=== PATIENT | female | born 1980 | race Caucasian/White ===

== ENCOUNTER 2022-03-29 13:30 | Emergency (ER) | payer OTHER, SELFPAY ==
[2022-03-29] VITALS (9 sets, daily range): BP systolic 114–126; BP diastolic 66–92; PULSE 68–86; RESP 16–18; TEMP 36.4; O2SAT 97–99; BMI 18.7
--- NOTE | 2022-03-29 14:05 | CRLHL7_ITS ---
For Patients: As a result of the Century Cures Act, medical imaging exams and procedure reports are released immediately into your electronic medical record. You may view this report before your referring provider. If you have questions, please contact your health care provider. INDICATION: Pain, nausea and recent surgery. Patient has a history nutcracker syndrome and has had recent surgery regarding her duodenum and left renal vein for treatment. COMPARISON: 11/11/2021 TECHNIQUE: CT examination of the abdomen and pelvis was performed following the uneventful intravenous administration of 100 cc of Omnipaque 350. Thin section axial images were obtained from the lung bases through the pubic symphysis. Oral contrast was not administered. Please note that all CT scans at this facility use dose modulation, iterative reconstruction, and/or weight-based dosing when appropriate to reduce radiation dose to as low as reasonably achievable. FINDINGS: LUNG BASES: The lung bases as visualized appear normal.The heart size is normal at the lung bases. LIVER/BILIARY SYSTEM:The liver is normal in size and configuration. There is no focal mass and there is no intra- or extra hepatic biliary ductal dilatation.The gallbladder is surgically absent. The caliber of the biliary system is within normal limits for patient age and prior cholecystectomy. ADRENALS: Normal KIDNEYS, URETERS and BLADDER:The kidneys appear normal. I cannot directly follow the course the patient`s left renal vein. However, the nephrograms are perfectly symmetrical. In the setting of renal vein thrombosis, the nephrograms are generally asymmetric. The timing of the bolus was not designed for evaluating the renal venous system. No hydronephrosis or hydroureter. The bladder appears normal. SPLEEN:Normal appearance. PANCREAS: Appears normal. RETROPERITONEUM and MESENTERY: There are 2 adjacent fluid collections in the retroperitoneum. They are to the left of the midline at the level of the left renal vein and proximal SMA behind the pancreas. This measures 2.5 by 6.4 x 2.2 centimeters in its anterior-posterior, mediolateral and craniocaudal respective dimensions from axial image 46 and coronal image 34. This is the aggregate measure of the 2 structures together. These are relatively simple collections with thin alonzo. These probably represent postoperative hematomas or seromas. These do not appear represent infected collections by imaging criteria. GASTROINTESTINAL SYSTEM: By report, the duodenum is been repositioned. The course is not well seen without oral contrast but there is no evidence of gastric outlet obstruction. The GI system is otherwise unremarkable PELVIS: No mass, adenopathy or free fluid. OSSEOUS STRUCTURES and ABDOMINAL WALL: There is an age-appropriate appearance of the osseous structures.Postoperative changes in the anterior abdominal wall OTHER: No free fluid or free air. I discussed this case with Dr. Miles at 2:55 p.m. on March 29, 2022 IMPRESSION: 1. There are 2 adjacent fluid collections in the upper left retroperitoneum measuring 2.5 x 6.4 x 2.2 centimeters in aggregate dimension. These are probably in the region of the operative bed for reimplantation of the left renal vein. They most likely represent hematomas or seromas. They do not have imaging features of an infected collection. 2. I do not directly see the course of the left renal vein. However, symmetric nephrograms suggests there is no evidence of left renal vein thrombosis. The timing of the study was not designed for the venous outflow of the kidneys. 3. No upper gastrointestinal obstructive findings. Please note that all CT scans at this facility use dose modulation, iterative reconstruction, and/or weight-based dosing when appropriate to reduce radiation dose to as low as reasonably achievable. Dictated by Gareth Motley MD @ 03/29/2022 3:01:09 PM (Electronically Signed)
--- NOTE | 2022-03-29 14:07 | ED.ABDPAIN ---
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 She comes in because of a couple days of nausea and abdominal pain. About 3 weeks ago she had an abdominal surgery where rerouting of her renal artery on the left side and her duodenum were attended to. She has been doing rather well since then but has developed nausea but no vomiting and increased abdominal pain. She does not report any fevers. Related Data Home Medications Medication Instructions Recorded Confirmed acyclovir 400 mg tablet mg PO PRN 02/27/22 02/27/22 levonorgestrel 20 mcg/24 hours (7 1 intrauterine ONCE 02/27/22 02/27/22 yrs) 52 mg intrauterine device ondansetron HCl 4 mg tablet mg PO Q6-8H PRN 02/27/22 02/27/22 ketorolac 10 mg tablet mg 03/29/22 methocarbamol 500 mg tablet mg 03/29/22 oxycodone 5 mg tablet mg 03/29/22 sennosides 8.6 mg-docusate sodium PO 03/29/22 50 mg tablet (Stimulant Laxative Plus) Previous Rx's Medication Instructions Recorded hydrocodone 5 mg-acetaminophen 325 1 tab PO Q4-6H PRN pain #24 tabs 03/29/22 mg tablet ondansetron HCl 4 mg tablet 4 mg PO Q6H #20 tabs 03/29/22 Allergies Allergy/AdvReac Type Severity Reaction Status Date / Time No Known Allergies Allergy Unverified 03/29/22 14:33 Review of Systems Status of ROS Reports: 10 or more systems reviewed and unremarkable except as noted in History and below Narrative Constitutional: No fevers, no weight gain or loss. Eyes: No discharge. No vision changes. HENT: No congestion, no sore throat, no ear pain. Cardiovascular: No chest pain, no palpitations. Respiratory: No shortness of breath, no wheezes, no cough. Gastrointestinal: Diffuse abdominal pain with nausea. No vomiting or diarrhea. Genitourinary: No dysuria, no hematuria. Musculoskeletal: Normal range of motion. Skin: No rashes, no pruritis. Neurological: No dizziness, weakness, sensory change, speech change. Endo/Heme/Allergies: No bruising or bleeding. No polydipsia. Pysch: no suicidality, no anxiety, no insomnia. All other systems reviewed and are negative. [facility] Medical History (Updated 03/29/22 @ 15:55 by Glen Miles MD) Anxiety with depression Cyst of ovary Dacryocystitis Fracture of sternum (10/13/16) Gastroesophageal reflux disease History of renal calculi (2011) Paroxysmal tachycardia SMAS (superior mesenteric artery syndrome) Unilateral sensorineural hearing loss (2016) Surgical History (Updated 02/21/22 @ 09:16 by Geovany Briseno) History of colonoscopy (12/05/12) History of esophagogastroduodenoscopy (EGD) (10/17/12) History of laparoscopic cholecystectomy (2012) History of nephrostomy (2011) History of umbilical hernia repair (2016) History of ureter stent (2011) Family History (Updated 02/21/22 @ 09:18 by Geovany Briseno) Aunt Breast cancer, Onset Age: 58 Ovarian cancer, Onset Age: 55 Type 2 diabetes mellitus Maternal Grandmother Stroke, Onset Age: 70 Type 2 diabetes mellitus Maternal Grandfather Myocardial infarction, Onset Age: 40 Type 2 diabetes mellitus Uncle Type 2 diabetes mellitus Other Kidney stone Social History (Updated 02/21/22 @ 09:19 by Geovany Briseno) Narrative: , RN in OR, 2 kids Exercises three times per week. walk, biking Social drinker, 4/week Tobacco abuse, 5 cig/day Smoking Status: Never smoker Do you use any of these nicotine containing products: None Second hand tobacco smoke exposure: No How often do you have a drink containing alcohol: never How often do you have six or more drinks on one occasion: Never AUDIT-C Alcohol total score: 0 Non-prescribed substance use: denies use service: No Exam Narrative: Exam Narrative: Constitutional: Well-developed, well-nourished, no acute distress. HEENT: Normocephalic, atraumatic. Neck: Normal range of motion. Nontender. Supple. Heart: Regular. No murmurs. Normal rate. Intact distal pulses. Lungs: Clear to auscultation. No chest discomfort. No wheezes, rhonchi, or rales. Abdomen: Normal bowel sounds. Diffuse tenderness. No rebound tenderness. Genitalia: Deferred. Back: No midline tenderness. Normal range of motion. Extremities: Normal range of motion. No injury. Skin: Intact. No rash. Warm. No erythema or pallor. Neurologic: No altered sensation. No weakness. Alert and oriented. Psychiatric: No suicidality. No anxiety or depression. No insomnia. Nursing notes and vitals signs are reviewed. Const: Vital Signs, click to edit/add: Vital Signs - 24 hr 03/29/22 13:45 Temperature 97.6 F Pulse Rate [Right Pulse Oximeter] 85 Respiratory Rate 16 Blood Pressure [Ri ght Upper Arm] 120/77 Pulse Oximetry 99 Oxygen Delivery Me thod Room Air Course Vital Signs Vital signs: Initial Vital Signs Temperature 97.6 F 03/29/22 13:45 Temperature Source Temporal Artery Scan 03/29/22 13:45 Pulse Rate 85 03/29/22 13:45 Pulse Rhythm 03/29/22 13:45 Respiratory Rate 16 03/29/22 13:45 Blood Pressure 120/77 03/29/22 13:45 Blood Pressure Mean 91 03/29/22 13:45 Blood Pressure Position Sitting 03/29/22 13:45 Pulse Oximetry 99 03/29/22 13:45 Oxygen Delivery Method 03/29/22 13:45 Vital Signs Temperature 97.6 F 03/29/22 13:45 Pulse Rate 85 03/29/22 13:45 Respiratory Rate 16 03/29/22 13:45 Blood Pressure 120/77 03/29/22 13:45 Pulse Oximetry 99 03/29/22 13:45 Oxygen Delivery Method 03/29/22 13:45 Temperature 97.6 F 03/29/22 13:45 Pulse Rate 85 03/29/22 13:45 Respiratory Rate 16 03/29/22 13:45 Blood Pressure 120/77 03/29/22 13:45 Pulse Oximetry 99 03/29/22 13:45 Oxygen Delivery Method 03/29/22 13:45 MDM - Abdominal Pain MDM Narrative Medical decision making narrative: . This patient comes in with worsening nausea and pain in her abdomen. She had a surgical procedure to manage in SMA syndrome and nutcracker situation involving her duodenum and left renal vein. She has been doing well but has felt worse over the last couple days. An IV was established where she received doses of Zofran and Dilaudid. This brought some relief to her symptoms. Lab results and urinalysis returned with reassuring findings. CT imaging of the abdomen and pelvis do show signs of small fluid collection around the surgical site that is considered to be either a seroma or hematoma. I did speak with the surgeon on-call, Dr. Shannon, who looked at the images and read the radiology report and gave reassurance is that these findings are not worrisome. The patient will be able to follow-up with her surgeon with these results and will return if worsening symptoms occur. She did received prescription for [place] and Zofran. Lab Data Labs: Lab Results 03/29/22 03/29/22 03/29/22 Range/Units 14:17 14:17 15:00 WBC 6.85 (4.50-11.00) K/uL RBC 4.05 (4.00-5.20) m/uL Hgb 12.9 (12.0-16.0) gm/dL Hct 38.3 (33.0-51.0) % MCV 95 (80-100) fL MCH 32 (26-34) pg MCHC 34 (32-36) gm/dL RDW Coeff of Sanjay 12.6 (11.5-15.5) % Plt Count 191 (140-440) K/uL Neut % (Auto) 63.6 (42.0-72.0) % Lymph % (Auto) 10.7 L (20-44) % [place] % (Auto) 6.4 (0.0-11.0) % Eos % (Auto) 18.7 H (0.0-7.0) % Baso % (Auto) 0.6 (0.0-3.0) % Neut # (Auto) 4.36 (1.7-7.0) K/uL Lymph # (Auto) 0.70 L (0.90-2.90) K/uL [place] # (Auto) 0.40 (0.00-0.90) K/UL Eos # (Auto) 1.30 H (0.00-0.50) K/uL Baso # (Auto) 0.04 (0.00-0.30) K/uL Abs Immat Gran (auto) 0.00 (0.00-0.30) K/uL Sodium 136 (135-149) mmol/L Potassium 3.9 (3.6-5.1) mmol/L Chloride 104 (96-114) mmol/L Carbon Dioxide 24 (20-32) mmol/L BUN 5 (5-24) mg/dL Creatinine 0.6 (0.5-1.5) mg/dL Estimated Creat Clear 117.18 Estimated GFR 117 ml/min Glucose 95 (60-115) mg/dL Calcium 9.0 (8.4-10.6) mg/dL Urine Color Yellow (Yellow) Urine Appearance Clear (Clear) Urine pH 7.0 (5.0-8.5) Ur Specific [place] 1.010 (1.000-1.030) Urine Protein Negative (Negative) Urine Glucose (UA) Negative (Negative) Urine Ketones Trace A (Negative) Urine Blood Negative (Negative) Urine Nitrite Negative (Negative) Urine Bilirubin 1+ A (Negative) Urine Urobilinogen 0.2 (0.2-1.0) Ur Leukocyte Esterase Negative (Negative) Urine RBC 0-2 (0-2) Urine WBC 0-2 (0-5) Ur Squamous Epith Cells None (None-Few) Urine Bacteria None (None) Imaging Data CT scan - abdomen: Radiologist's impression: 1. There are 2 adjacent fluid collections in the upper left retroperitoneum measuring 2.5 x 6.4 x 2.2 centimeters in aggregate dimension. These are probably in the region of the operative bed for reimplantation of the left renal vein. They most likely represent hematomas or seromas. They do not have imaging features of an infected collection. 2. I do not directly see the course of the left renal vein. However, symmetric nephrograms suggests there is no evidence of left renal vein thrombosis. The timing of the study was not designed for the venous outflow of the kidneys. 3. No upper gastrointestinal obstructive findings. Discharge Plan Discharge Clinical Impression: Nutcracker phenomenon of renal vein, SMAS (superior mesenteric artery syndrome) Condition: Stable Additional Instructions: Follow-up with primary surgeon with lab and imaging results. Take medication as needed and directed. Follow up with MD otherwise as needed or return if worsening. Prescriptions: New hydrocodone-acetaminophen 5-325 mg tablet 1 tab PO Q4-6H PRN (Reason: pain) Qty: 24 0RF ondansetron HCl 4 mg tablet 4 mg PO Q6H Qty: 20 0RF No Action levonorgestrel 20 mcg/24 hours (7 yrs) 52 mg intrauterine device 1 intrauterine ONCE ondansetron HCl 4 mg tablet PO Q6-8H PRN acyclovir 400 mg tablet PO PRN Rx Instructions: 1 tab po 5 times daily x 5 days , use PRN for cold sores methocarbamol 500 mg tablet Label Comments: TAKE 1 TABLET BY MOUTH THREE TIMES DAILY NEEDED sennosides-docusate sodium [Stimulant Laxative Plus] 8.6-50 mg tablet PO Label Comments: TAKE 1 TABLET BY MOUTH TWICE DAILY. GO DOWN TO [place] DAILY ONCE YOU BEGIN TO HAVE BOWEL MOVEMENTS oxycodone 5 mg tablet ketorolac 10 mg tablet Follow Up/Referrals: Yadira Crowe MD [Primary Care Provider] - Stand Alone Forms: [employer] Info Instructions
[2022-03-29] MEDS: ONDANSETRON 2 MG/ML inj 4 MG IVP ×3 (14:21→17:07)
[2022-03-29] MEDS: 0.9 % SODIUM CHLORIDE 1000 ml 1,000 ML IV (14:21)
[2022-03-29] MEDS: HYDROmorphone 0.5 mg/0.5 ml inj IVP ×3 (14:22→21:39)
[2022-03-29 14:28] LABS: Basophils Absolute Auto 0.04 K/uL (0.00-0.30); Basophils Percent Auto 0.6 % (0.0-3.0); Eosinophils Percent Auto 18.7 % (0.0-7.0); Hematocrit 38.3 % (33.0-51.0); Hemoglobin* 12.9 gm/dL (12.0-16.0); Lymphocytes Percent Auto 10.7 % (20-44); Mean Corpuscular HGB Conc 34 gm/dL (32-36); Mean Corpuscular Hemoglobin 32 pg (26-34); Mean Corpuscular Volume 95 fL (80-100); Monocytes Percent Auto 6.4 % (0.0-11.0); Neutrophils Absolute Auto 4.36 K/uL (1.7-7.0); Neutrophils Percent Auto 63.6 % (42.0-72.0); Platelet Count* 191 K/uL (140-440); RDW Coefficient of Variation % 12.6 % (11.5-15.5); Red Blood Count 4.05 m/uL (4.00-5.20); White Blood Count* 6.85 K/uL (4.50-11.00)
[2022-03-29 14:43] LABS: Slide Review Reflex No
[2022-03-29 14:52] LABS: Chloride* 104 mmol/L (96-114); Potassium* 3.9 mmol/L (3.6-5.1); Sodium* 136 mmol/L (135-149)
[2022-03-29 14:55] LABS: Blood Urea Nitrogen* 5 mg/dL (5-24); Carbon Dioxide* 24 mmol/L (20-32); Creatinine* 0.6 mg/dL (0.5-1.5); Est. Creatinine Clearance* 117.18; Estimated Glomerular Filt Rate 117 ml/min
[2022-03-29 14:56] LABS: Glucose* 95 mg/dL (60-115)
[2022-03-29 15:11] LABS: Appearance Urine Clear (Clear); Bilirubin Urine 1+ (Negative); Blood Urine Negative (Negative); Color Urine Yellow (Yellow); Glucose Urine Negative (Negative); Ketones Urine Trace (Negative); Leukocyte Esterase Urine Negative (Negative); Nitrite Urine Negative (Negative); Protein Urine Negative (Negative); Urobilinogen Urine 0.2 (0.2-1.0)
[2022-03-29 15:18] LABS: RBC Urine 0-2 (0-2); WBC Urine 0-2 (0-5)
[2022-03-29 16:23] LABS: Albumin* 3.9 g/dL (3.3-5.0)
[2022-03-29 16:26] LABS: Alkaline Phosphatase* 263 U/L (40-150); Aspartate Amino Transferase* 413 U/L (12-35); Bilirubin Direct* 2.7 mg/dL (0.0-0.5); Bilirubin Total* 4.2 mg/dL (0.1-1.5); Total Protein* 6.7 g/dL (6.0-8.3)
--- NOTE | 2022-03-29 16:55 | CRLHL7_ITS ---
For Patients: As a result of the Cures Act, medical imaging exams and procedure reports are released immediately into your electronic medical record. You may view this report before your referring provider. If you have questions, please contact your health care provider. Indication: Elevated liver enzymes elevated bilirubin. Technique: Sonography of the abdomen was limited to structures discussed. Comparison: The CT from the same Findings: The liver is normal in echogenicity. There is no focal mass and there is intra hepatic biliary ductal dilatation. No perihepatic fluid collections. The gallbladder surgically absent. The common duct measures 7 millimeters. This is within normal limits for patient age and prior cholecystectomy. The pancreatic head and body appear normal. The duct appears mildly prominent at the pancreatic head but this was not confirmed on the contemporaneously CT. The right kidney is normal in size and echogenicity without focal mass. The right kidney measures 11.7 x 5.0 x 4.3 centimeters. The aorta in the upper abdomen appear normal Impression: Mildly prominent extrahepatic duct. This is 7 millimeters which is considered within normal limits for patient age and prior cholecystectomy. Hepatic echogenicity is normal without focal mass. Dictated by Gareth Motley MD @ 03/29/2022 6:02:16 PM (Electronically Signed)
[2022-03-29 17:26] LABS: Alanine Aminotransferase* 778 U/L (4-35)
[2022-03-29 18:15] LABS: Lipase* 103 U/L (23-300)
[2022-03-29] MEDS: LORazepam 2 MG/ML inj 0.5 MG IVP (22:39)
== END 2022-03-29 22:54 | disposition home or self-care (01) ==
PROVIDERS: Emergency Provider Emergency Medicine Emergency Medical Services; PCP Family Medicine
DX: I87.1 Compression of vein (principal); K55.1 Chronic vascular disorders of intestine
CPT/HCPCS: 36415; 74177; 76705; 80048; 80076; 81001; 83690; 85025; 96374; 96375; 96376; 99285; J1170; J2060; J2405; J7030; Q9967

== ENCOUNTER 2022-03-29 22:48 | Outpatient (CLI) | payer OTHER, SELFPAY | END 2022-03-29 22:49 | disposition home or self-care (01) | LOC: AMB 04-01 16:22 | PROVIDERS: PCP Family Medicine; Visit Provider Emergency Medicine Emergency Medical Services | DX: R10.9 Unspecified abdominal pain (principal); R11.2 Nausea with vomiting, unspecified | CPT/HCPCS: A0425; A0428 ==

== ENCOUNTER 2022-04-10 08:25 | Outpatient (CLI) | payer OTHER, SELFPAY ==
[2022-04-10 10:14] LABS: Albumin* 4.3 g/dL (3.3-5.0)
[2022-04-10 10:17] LABS: Bilirubin Direct* 0.9 mg/dL (0.0-0.5); Total Protein* 6.7 g/dL (6.0-8.3)
[2022-04-10 10:18] LABS: Alanine Aminotransferase* 229 U/L (4-35); Alkaline Phosphatase* 157 U/L (40-150); Aspartate Amino Transferase* 62 U/L (12-35)
== END 2022-04-10 08:26 | disposition home or self-care (01) ==
LOC: NFLDREF 08:26
PROVIDERS: PCP Family Medicine; Visit Provider Surgery
DX: K55.1 Chronic vascular disorders of intestine (principal)
CPT/HCPCS: 80076

== ENCOUNTER 2024-01-10 07:52 | Outpatient (CLI) | payer OTHER, SELFPAY ==
--- OUTSIDE RECORDS SUMMARY | 2024-01-14 16:22 | XMS_ITS | Encounter Summary ---
Author Organization [facility] Address [address] [place] [address]. [place] [address] Care Team Providers Care Stacker Name Role Phone Rich Vilchis MD Unavailable [phone] Yadira Crowe MD Primary Care Provider + Emilie Elder SANITATION INSPECTOR Unavailable [phone] Rich Vilchis MD Unavailable [phone] Encounter Details Date Type Department Care Team (Late st Contact Info) Description 03/23/2022 MyC Medical Advice [facility] [address] [place] [phone] Emilie Elder, SANITATION INSPECTOR [address] [place], [place] [address] Social History Tobacco Use Types Packs/Day Years Used Date Smoking Tobacco: Former Cigarettes Q uit: 02/07/2022 Smokeless Tobacco: Never Alcohol Use Standard Drinks/Week Comments Yes 0 (1 standard drink = 0.6 oz pur e alcohol) 4 times per week Sex and Gender Information Value Date Recorded Sex Assigned at Not on file Gender Identity Not on file Sexual Orientation Not on file COVID-19 Exposure Response Date Recorded In the last 10 days, have yo u been in contact with someone who was confirmed or suspected to have Coronavirus/COVID-19? No / Unsure 03/20/2022 10:04 AM CDT documented as of this encounter Plan of Treatment Not on file documented as of this encounter Visit Diagnoses Not on filedocumented in this encounter Additional Health Concerns Infection Onset Date Last Indicated Resolved Time Recovered COVID Comment:01/07/22- positive. 02/02/2022 02/02/2022 04/18/2022 11: 41 PM CDT documented as of this encounter Care Teams Stacker Relationship Specialty Start Date End Date Yadira Crowe MD [facility] & [address] [address] PCP - General Family Medicine 03/06/22 Rich Vilchis MD [address] [id number] [id number] Assigned Heart and Vascular Provider 02/03/22 03/30/22 Emilie Elder NP [address] [place], [place] [id number] Assigned Heart and Vascular Provider 03/31/22 05/01/22 Rich Vilchis MD [address] [id number] [id number] Assigned Heart and Vascular Provider 05/02/22 12/25/23 documented as of this encounter
--- OUTSIDE RECORDS SUMMARY | 2024-01-14 16:22 | XMS_ITS | Referral Summary ---
Author Organization [place] Address [address] [place] [address] Care Team Providers Care Homicide Detective Name Role Phone Yadira Crowe MD Primary Care Provider + Allergies Active Allergy Reactions Criticality Noted Date Comments Banana Shortness Of Breath High 01/02/2012 Check RAST after delivery for possible association Medications Medication Sig Dispensed Refills Start Date End Date Status acyclovir (ZOVIRAX) 400 MG tablet Take 400 mg by mouth 5 times daily for 5 days as needed for cold sores Active levonorgestrel (MIRENA) 20 MCG/DAY IUD 1 each by Intrauterine route once Active naloxone (NARCAN) 4 MG/0.1ML nasal sprayIndications:N utcracker phenomenon of renal vein Krebs 1 spray (4 mg) into one nostril alternating nostrils once as needed for opioid reversal every 2-3 minutes until assistance arrives 0.2 mL 1 03/23/2022 Active ondansetron (ZOFRAN) 4 MG tabletIndications: Nutcracker phenomenon of renal vein Take 1 tablet (4 mg) by mouth every 8 hours as needed for nausea 20 tablet 04/01/2022 Active omeprazole (PRILOSEC) [address] capsuleIndications :Nutcracker phenomenon of renal vein Take 1 capsule (20 mg) by mouth daily Take Omeprazole while taking Ibuprofen for pain 20 capsule 04/01/2022 Active ibuprofen (ADVIL/MOTRIN) 600 MG tabletIndications: Nutcracker phenomenon of renal vein Take 1 tablet (600 mg) by mouth every 6 hours as needed for moderate pain 20 tablet 04/02/2022 Active Active Problems Problem Noted Date Diagnosed Date Jaundice 03/30/2022 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 Immunizations Name Administration Dates Next Due COVID-19 MONOVALENT 12+ (Pfizer) 05/03/2021,08/05,07/27/2020 Social History Tobacco Use Types Packs/Day Years Used Date Smoking Tobacco: Some Days Cigarettes Last attempted to quit: 02/07/2022 Smokeless Tobacco: Never Tobacco Cessation:Ready to Q uit: Not Asked; Counseling Given: Not Answered Alcohol Use Standard Drinks/Week Comments Yes 0 (1 standard drink = 0.6 oz pur e alcohol) occ Adolescent Education Answer Date Record ed Getting School Help Needed Not on file 04/27 Sex and Gender Information Value Date Recorded Sex Assigned at Not on file Gender Identity Not on file Sexual Orientation Not on file Last Filed Vital Signs Vital Sign Reading Time Taken Comments Blood Pressure 110/67 05/04/2022 10:41 AM CDT Pulse 70 05/04/2022 10:41 AM CDT Temperature 36.8 ??C (98.2 ??F) 05/04/2022 6:13 AM CD T Respiratory Rate 16 05/04/2022 10:41 AM CDT Oxygen Saturation 100% 05/04/2022 9:45 AM CDT Inhaled Oxygen Concentration - - Weight 60 kg (132 lb 3.2 oz) 05/04/2022 6:13 AM CDT Height 177.8 cm (5' 10) 05/04/2022 6:13 AM CDT Body Mass Index 18.97 05/04/2022 6:13 AM CDT Plan of Treatment Not on file Procedures Procedure Name Priority Date/Time Associated Diagnosis Comments BASIC METABOLIC PANEL STAT 05/04/2022 6:41 AM CDT HEPATITIS C ANTIBODY Add-On 03/30/2022 7:10 AM CDT LIPID PROFILE STAT 03/06/2022 6:08 AM CDT from Last 3 Months or Most Recently Relevant to Health Maintenance Results * Basic metabolic panel (05/04/2022 6:41 AM CDT) Sodium 140 133 - 144 mmol/L 05/04/2022 7:17 AM CDT LABORATORY Potassium 3.8 3.4 - 5.3 mmol/L 05/04/2022 7:17 AM CDT LABORATORY Comment:Specimen slightly he molyzed, potassium may be falsely elevated. Chloride 108 94 - 109 mmol/L 05/04/2022 7:17 AM CDT LABORATORY Carbon Dioxide (CO2) 25 20 - 32 mmol/L 05/04/2022 7:17 AM CDT LABORATORY Anion Gap 7 3 - 14 mmol/L 05/04/2022 7:17 AM CDT LABORATORY Urea Nitrogen 11 7 - 30 mg/dL 05/04/2022 7:17 AM CDT LABORATORY Creatinine 0.67 0.52 - 1.04 mg/dL 05/04/2022 7:17 AM CDT LABORATORY Calcium 9.2 8.5 - 10.1 mg/dL 05/04/2022 7:17 AM CDT LABORATORY Glucose 87 70 - 99 mg/dL 05/04/2022 7:17 AM CDT LABORATORY GFR Estimate >90 >60 mL/min/1.7 3m2 05/04/2022 7:17 AM CDT LABORATORY Comment:Effective July 062020 eGFRcr in adults is calculated using the 2020 CKD-EPI creatinine equation which includes age and gender (Yohana et al., NEJM, DOI: 10.1056/JGMGuw4217807) Blood STRUCTURE OF RIGHT UPPER LIMB / Unknown Venipuncture / Unknown 05/04/2022 6:41 AM CDT 05/04/2022 6:50 AM CDT Abel Rae MD LAB - BLOOD ORD ERABLES LABORATORY [facility] [address] 1[address] floor, [address] [place] [address], [facility] [phone] * Hepatitis C antibody (03/30/2022 7:10 AM CDT) Hepatitis C Antibody Nonreactive Nonreactive 03/30/2022 9:28 PM CDT SPECIALTY CORE/PROT/EN DO Blood STRUCTURE OF LEFT UPPER LIMB / Unknown Venipuncture / Unknown 03/30/2022 7:10 AM CDT 03/30/2022 7:17 AM CDT Narrative [facility] SPECIALTY CORE/PROT/ENDO - 03/30/2022 9:28 PM CDT Assay performance characteristics have not been established for newborns, infants, and children. Michelle Brar PA-C LAB - BLOOD ORDERAB LES [facility] SPECIALTY CORE/PROT/ENDO [facility] Specialty Core/Prot/Endo [address] [facility] [address] [facility], [address] [place] [address] [phone] * Lipid panel (03/06/2022 6:08 AM CDT) [facility] Cholesterol 169 <200 mg/dL 03/06/2022 6:38 AM CDT LABORATORY Triglycerides 106 <150 mg/dL 03/06/2022 6:38 AM CDT LABORATORY Direct Measure HDL 111 >=50 mg/dL 2021 6:38 AM CDT LABORATORY LDL Cholesterol Calculated 37 <=100 mg/dL 03/06/2022 6:38 AM CDT LABORATORY Non HDL Cholesterol 58 <130 mg/dL 03/06/2022 6:38 AM CDT LABORATORY Blood STRUCTURE OF RIGHT UPPER LIMB / Unknown Venipuncture / Unknown 03/06/2022 6:08 AM CDT 03/06/2022 6:11 AM CDT Narrative LABORATORY - 03/06/2022 6:38 AM CDT Cholesterol Desirable: ??<200 mg/dL Triglycerides Normal: ??Less than 150 mg/dL Borderline High: ??150-199 mg/dL High: ??200-499 mg/dL Very High: ??Greater than or equal to 500 mg/dL Direct Measure HDL Female: ??Greater than or equal to 50 mg/dL Male: ??Greater than or equal to 40 mg/dL LDL Cholesterol Desirable: ??<100mg/dL Above Desirable: ??100-129 mg/dL Borderline High: ??130-159 mg/dL High: ??160-189 mg/dL Very High: ??>= 190 mg/dL Non HDL Cholesterol Desirable: ??130 mg/dL Above Desirable: ??130-159 mg/dL Borderline High: ??160-189 mg/dL High: ??190-219 mg/dL Very High: ??Greater than or equal to 220 mg/dL Rich Vilchis MD LAB - BLOOD ORD ERABLES LABORATORY [facility] [address] floor, [address] [place] [address], [facility] [phone] from Last 3 Months or Most Recently Relevant to Health Maintenance Advance Directives For more information, please contact: [phone] * Full Code (Latest Code Status on File) Date Activated Date Inactivated Comments 03/30/2022 12:36 AM 04/01/2022 2:38 PM All basic a nd advanced life-sustaining interventions are performed as appropriate Question Answer Comments Code status determined by: Discussion with antione nt/ legal decision maker * Full Code Date Activated Date Inactivated Comments 03/06/2022 11:40 AM 03/11/2022 12:41 PM All basic an d advanced life-sustaining interventions are performed as appropriate Question Answer Comments Code status determined by: Discussion with antione nt/ legal decision maker Care Teams Homicide Detective Relationship Specialty Start Date End Date Yadira Crowe MD [facility] & [address] [address] PCP - General Family Medicine 03/06/22
--- OUTSIDE RECORDS SUMMARY | 2024-01-14 16:22 | XMS_ITS | Encounter Summary ---
Author Organization [place] Address [address] [place] [address] Care Team Providers Care Atmospheric Sciences Professor Name Role Phone Yadira Crowe MD Primary Care Provider + Rich Vilchis MD Unavailable [phone] Encounter Details Date Type Department Care Team (Late st Contact Info) Description 05/08/2022 [facility] [place] [facility] [address] [phone] Paz Freedman RN Social History Tobacco Use Types Packs/Day Years Used Date Smoking Tobacco: Former Cigarettes Q uit: 02/07/2022 Smokeless Tobacco: Never Alcohol Use Standard Drinks/Week Comments Yes 0 (1 standard drink = 0.6 oz pur e alcohol) occ Sex and Gender Information Value Date Recorded Sex Assigned at Not on file Gender Identity Not on file Sexual Orientation Not on file COVID-19 Exposure Response Date Recorded In the last 10 days, have yo u been in contact with someone who was confirmed or suspected to have Coronavirus/COVID-19? No / Unsure 05/04/2022 5:52 AM CDT documented as of this encounter Plan of Treatment Not on file documented as of this encounter Visit Diagnoses Not on filedocumented in this encounter Care Teams Atmospheric Sciences Professor Relationship Specialty Start Date End Date Yadira Crowe MD [facility] [address] [place] [address] PCP - General Family Medicine 03/06/22 Rich Vilchis MD [address] [place] [address] Assigned Heart and Vascular Provider 05/02/22 12/25/23 documented as of this encounter
--- OUTSIDE RECORDS SUMMARY | 2024-01-14 16:22 | XMS_ITS | Encounter Summary ---
Author Organization [facility] Address [address] [place] [address]. [place] [address] Care Team Providers Care Broadcast News Producer Name Role Phone Rich Vilchis MD Unavailable Yadira Crowe MD Primary Care Provider + Emilie Elder SMELLER Unavailable [phone] Rich Vilchis MD Unavailable [phone] Reason for Visit * Reason Onset Date Comments Refill Request 03/18/2022 Encounter Details Date Type Department Care Team (Late st Contact Info) Description 03/18/2022 Navya Beck [facility] [address] [place] [address] [phone] Emilie Elder, SMELLER [address] [place], [place] [phone] Refill Request Social History Tobacco Use Types Packs/Day Years Used Date Smoking Tobacco: Some Days Cigarettes Smokeless Tobacco: Never Alcohol Use Standard Drinks/Week [...] documented as of this encounter Visit Diagnoses Diagnosis Nutcracker phenomenon of renal vein documented in this encounter Additional Health Concerns Infection Onset Date Last Indicated Resolved Time Recovered COVID Comment:01/07/22- positive. 02/02/2022 02/02/2022 04/18/2022 11: 41 PM CDT documented as of this encounter Care Teams Broadcast News Producer Relationship Specialty Start Date End Date Yadira Crowe MD [facility] & [address] [address] PCP - General Family Medicine 03/06/22 Rich Vilchis MD [address] [id number] Assigned Heart and Vascular Provider 02/03/22 03/30/22 Emilie Elder NP [address] [place], [place] [address] Assigned Heart and Vascular Provider 03/31/22 05/01/22 Rich Vilchis MD [address] [address] Assigned Heart and Vascular Provider 05/02/22 12/25/23 documented as of this encounter
--- OUTSIDE RECORDS SUMMARY | 2024-01-14 16:22 | XMS_ITS | Encounter Summary ---
Author Organization [facility] Address [address] [place] [address]. [place] [address] Care Team Providers Care Pest Control Chemical Technician Name Role Phone Yadira Crowe MD Primary Care Provider + Emilie Elder INVISIBLE BRACES ORTHODONTIST Unavailable [phone] Rich Vilchis MD Unavailable Encounter Details Date Type Department Care Team (Late st Contact Info) Description 04/11/2022 [facility] [place] [facility] [place] [facility] [address] [place] [phone] Emilie Elder, INVISIBLE BRACES ORTHODONTIST [address] [place] [address] Social History Tobacco Use Types Packs/Day Years [...] Date Last Indicated Resolved Time Recovered COVID Comment:6/5/22- positive. 02/02/2022 02/02/2022 04/18/2022 11: 41 PM CDT documented as of this encounter Care Teams Pest Control Chemical Technician Relationship Specialty Start Date End Date Yadira Crowe MD [facility] & [address] [address] PCP - General Family Medicine 03/06/22 Emilie Elder NP [address] [place] [address] Assigned Heart and Vascular Provider 03/31/22 05/01/22 Rich Vilchis MD [address] [place] [address] Assigned Heart and Vascular Provider 05/02/22 12/25/23 documented as of this encounter
--- OUTSIDE RECORDS SUMMARY | 2024-01-14 16:22 | XMS_ITS | Encounter Summary ---
Author Organization [facility] Address [address] [place] [address] Care Team Providers Care Multiple Cut Off Saw Operator Name Role Phone Yadira Crowe MD Primary Care Provider + Emilie Elder CAT SWAMPER Unavailable [phone] Rich Vilchis MD Unavailable Reason for Visit * Reason Onset Date Comments Refill Request 04/02/2022 Encounter Details Date Type Department Care Team (Late st Contact Info) Description 04/02/2022 My[facility] Refill M [facility] [place] [id number] [facility] [address] [place] [address] Emilie Elder, CAT SWAMPER [address] [place], [place] [address] Refill Request Social History Tobacco Use Types [...] documented as of this encounter Care Teams Multiple Cut Off Saw Operator Relationship Specialty Start Date End Date Yadira Crowe MD [facility] & [address] [address] PCP - General Family Medicine 03/06/22 Emilie Elder NP [address] [place], [place] [address] Assigned Heart and Vascular Provider 03/31/22 05/01/22 Rich Vilchis MD [address] [place] [address] Assigned Heart and Vascular Provider 05/02/22 12/25/23 documented as of this encounter
--- OUTSIDE RECORDS SUMMARY | 2024-01-14 16:22 | XMS_ITS | Clinical Summary ---
Author Organization [facility] Address [address] [place] [address] Care Team Providers Care Hydrologist Name Role Phone Yadira Crowe MD Primary [...] nasal sprayIndications:N utcracker phenomenon of renal vein Delta 1 spray (4 mg) into one nostril [...] 05/04/2022 6:13 AM CDT Plan of Treatment Health Maintenance Due Date Last Done Comments ADVANCE CARE PLANNING 1982 ANNUAL REVIEW OF HM ORDERS 1982 MAMMO SCREENING 1982 YEARLY PREVENTIVE VISIT 1982 IPV IMMUNIZATION (2 of 3 - 4-dose series) 07/23/1984 06/25/1984, 06/25/1984 Pneumococcal Vaccine: Pediatrics (0 to 5 Years) and At-Risk Patients (6 to 64 Years) (1 of 2 - PCV) 1988 HIV SCREENING 1997 PAP 11/08/2003 DTAP/TDAP/TD IMMUNIZATION (4 - Td or Tdap) 02/25/2022 02/26/2012, 03/15/1996, 06/28/1984, Additional history exists COVID-19 Vaccine ( - season) 2023 05/03/2021, 08/16/2020, 07/27/2020 PHQ-2 (once per calendar year) 2023 INFLUENZA VACCINE (Season Ended) 2024 05/11/2020, 05/11/2020, 05/06/2019, Additional history exists GLUCOSE 05/04/2025 05/04/2022, 03/06, 03/31/2022, Additional history exists LIPID 03/06/2027 03/06/2022 HEPATITIS B IMMUNIZATION Completed 001, 10/17/2000, 09/19/2000 HEPATITIS C SCREENING Completed 03/30/2022 HPV IMMUNIZATION Aged Out No longer e ligible based on patient's age to complete this topic MENINGITIS IMMUNIZATION Aged Out No l onger eligible based on patient's age to complete this topic RSV MONOCLONAL ANTIBODY Aged Out No l onger eligible based on patient's age to complete this topic Procedures Procedure Name Priority Date/Time Associated Diagnosis [...] and gender (Yohana et al., NEJM, DOI: 10.1056/[id number]) Blood STRUCTURE OF RIGHT UPPER LIMB / Unknown Venipuncture / Unknown 05/04/2022 6:41 AM CDT 05/04/2022 6:50 AM CDT Abel Rae MD LAB - BLOOD ORD ERABLES LABORATORY [facility] [address] floor, [address] [place] [address], [facility] [phone] * Hepatitis C antibody (03/30/2022 7:10 AM CDT) Hepatitis C Antibody Nonreactive Nonreactive 03/30/2022 9:28 PM CDT UM SPECIALTY CORE/PROT/EN DO Blood STRUCTURE OF LEFT UPPER LIMB / Unknown Venipuncture / Unknown 03/30/2022 7:10 AM CDT 03/30/2022 7:17 AM CDT Narrative UM SPECIALTY CORE/PROT/ENDO - 03/30/2022 9:28 PM CDT Assay performance characteristics have not been established for newborns, infants, and children. Michelle Brar PA-C LAB - BLOOD ORDERAB LES UM SPECIALTY CORE/PROT/ENDO UM Specialty Core/Prot/Endo [address], [address] [place] [address], [facility] [phone] * Lipid panel (03/06/2022 6:08 AM CDT) Cholesterol 169 <200 mg/dL 03/06/2022 6:38 AM [...] MD LAB - BLOOD ORD ERABLES LABORATORY [facility] [address], [address] [place] [address], [place] [phone] from Last 3 Months or Most Recently Relevant to Health Maintenance Advance Directives For more information, please contact: [phone] * Full Code (Latest Code Status on File) Date Activated Date Inactivated Comments 03/30/2022 12:36 AM 04/01/2022 2:38 PM All basic a nd advanced life-sustaining interventions are performed as appropriate Question Answer Comments Code status determined by: Discussion with patie nt/ legal decision maker * Full Code Date Activated Date Inactivated Comments 03/06/2022 11:40 AM 03/11/2022 12:41 PM All basic an d advanced life-sustaining interventions are performed as appropriate Question Answer Comments Code status determined by: Discussion with patie nt/ legal decision maker Care Teams Hydrologist Relationship Specialty Start Date End Date Yadira Crowe MD [facility] & [address] [address] PCP - General Family Medicine 03/06/22
--- OUTSIDE RECORDS SUMMARY | 2024-01-14 16:23 | XMS_ITS | Clinical Summary ---
Author Organization [employer] [facility] Address [place], [place] [address] Care Team Providers Care Commodity Director Name Role Phone Yadira Crowe MD Primary Care Provider + Allergies Active Allergy Reactions Criticality Noted Date Comments Banana Dyspnea 01/02/2012 Check RAST after delivery for possible association Medications Medication Sig Dispensed Refills Start Date End Date Status ondansetron (ZOFRAN ODT) 4 mg disintegrating tabletIndications:Righ t flank pain Place 1 tablet on the tongue every 8 hours if needed for Nausea/Vomiting . 6 tablet 0 07/17/2015 Active acyclovir (ZOVIRAX) 400 mg tabletIndications:Herp es simplex TAKE 1 TABLET BY MOUTH TWICE DAILY 180 tablet 10/02/2017 Active lansoprazole (PREVACID) 30 mg capsule Take 1 capsule by mouth once daily. 0 02/28/2018 Active ranitidine (ZANTAC) 150 mg tabletIndications:Bhavna roesophageal reflux disease, esophagitis presence not specified Take 1 tablet by mouth 2 times daily. 60 tablet 11 02/28/2018 Active Active Problems Problem Noted Date Diagnosed Date Palpitation 03/13/2019 Family history of early CAD 03/13/2019 Closed fracture of body of sternum 10/15/2016 Depression with anxiety 11/25/2013 Microscopic colitis 12/05/2012 Overview: Colonoscopy 12/2012 microscopic colitis GERD (gastroesophageal reflux disease) 2 Urosepsis 01/11/2012 Overview: With SIRS, due to nephrolithiasis 12/2009. Hospitalized at [place]. Recurred 02/2012, hospitalized at [facility] [place] Nephrolithiasis 01/04/2012 Overview: Ultrasound 01/03 CR [place]: m Moderate right hydronephrosis with echogenic focus 9 mm(s) x 6 mm(s) x 7 mm(s) c/w stone in proximal right ureter and UPJ. Also 10 mm x 8 mm(s) x 8 mm(s) stone within lower pole collecting system of right kidney. Left kidney with mild fullness but otherwise normal. 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 Koch in [place] at 9AM [address] [facility] Urethritis, unspecified 07/25/201104/2012 Supervision of other normal 10/11/2010 02/11/2012 Overview: 12/25/11 Planning on delivering in [place]. Care Coordination: Clarke Montano RN [facility] [phone] Pediatric urology consult with Dr. Koch on 12/18/11. Plan per Dr. Koch for infant to have an ultrasound sometime after 2 days old and follow up Dr[address] Koch at [facility]. Kidney stone complicating 08/19/2009 12/17/2011 Supervision of normal first 03/09/2009 11/16/2009 Surveillance of other previo usly prescribed contraceptive method 02/10/2007 08/17/2011 Immunizations Name Administration Dates Next Due DTP 03/12/1993, 3,10/25/1987,11/09/1985, 05/28/1983 HIB HbOC (HibTITER) 03/31/1986 Hepatitis B (Adult) 03/19/2001,10/17/2000,2000 Influenza A (H1N1), Inactivated 05/30/2009 Influenza, IIV3 (Age >=3 years) 04/22/2013,04/30,04/16/2011,05/30/2009 Influenza, IIV4 05/15/2016,04/06/2015,05/06/2014 MMR 02/25/1984 Oral Polio Vaccine 03/12/1993,10/25/1987, 986,01/10/1983 Td (Age >=7 Years) 03/15/1996 Tdap 02/26/2012 Tuberculin (PPD) 04/29/2008,03/17/2008, 7 Family History Medical History Relation Name Comments Good Health Father Arthritis Mother RA Other Sister 2 alopecia Good Health Son severe renal re flux Relation Name Status Comments Daughter Alive Father Alive Maternal Grandfather Maternal Grandmother Mother Alive Paternal Grandfather Alive Paternal Grandmother Sister 1 Alive Sister 2 Son Alive Social History Tobacco Use Types Packs/Day Years Used Date Smoking Tobacco: Former Cigarettes Q uit: 11/03/2008 Smokeless Tobacco: Never Tobacco Cessation:Counseling Given: Yes Alcohol Use Standard Drinks/Week Comments Yes 0 (1 standard drink = 0.6 oz pure alcohol) occasional (1 to 2 drinks per week) Sex and Gender Information Value Date Recorded Sex Assigned at Not on file Gender Identity Not on file Sexual Orientation Not on file Obstetrics History Para Term AB IAB SAB Ectopic Multiple Livin g Live Births 3 2 2 0 1 0 1 0 0 2 Date Outcome GA Total Labor Labor/2nd/3rd Weight Sex Type Anes PTL Naheed A1 A5 Name Clin SAB Comments:System Genera jesus. Please review and update details. Term Term Comments:System Genera jesus. Please review and update details. Last Filed Vital Signs Vital Sign Reading Time Taken Comments Blood Pressure 129/73 02/28/2018 1:37 PM CDT Pulse 92 02/28/2018 1:37 PM CDT Temperature 36.7 ??C (98.1 ??F) 10/30/2016 11:25 AM C DT Respiratory Rate 16 11/19/2016 8:02 AM CDT Oxygen Saturation 99% 02/28/2018 1:37 PM CDT Inhaled Oxygen Concentration - - Weight 60.6 kg (133 lb 9.6 oz) 02/28/2018 1:37 P M CDT Height 177.2 cm (5' 9.75) 11/19/2016 8:02 AM CD T Body Mass Index 19.31 11/19/2016 8:02 AM CDT Plan of Treatment Health Maintenance Due Date Last Done Comments Hepatitis C screening for age 18-79 2000 Depression screening for age 12+ 09/07/2017 09/07/2016, 11/23/2015 BMI (ht and wt on same day) for age 18+ 11/19/2017 11/19/2016, 10/25/2016, 10/22/2016, Additional history exists Pap test for age 21-65 09/07/2019 7, 01/02/2012, 11/22/2008, Additional history exists Tetanus booster 02/25/2022 02/26/2012, 03/15/1996 COVID-19 vaccine series ( season) 2023 Influenza for age 9-49 04/05/2024 6, 04/06/2015, 05/06/2014, Additional history exists HIV for age 15-65 Completed 05/25/2011, 02/21/2009 Tdap Completed 02/26/2012 Pneumococcal series for age 6-64 Aged Out No longer eligible based on patient's age to complete this topic Medical Devices Implanted Type Area Safety Associate Device Identifier Shelf Expiration Date Model / Serial / Lot Stent Contour [id number] - [id number] Implanted:Qty: 1 on 08/19/2009 at [facility] Left: Ureter [facility] [id number] / / [id number] Procedures Procedure Name Priority Date/Time Associated Diagnosis Comments LIQUOR BLENDER THIN PREP PAP SCREEN IMAGED Routine 09/07/2016 11:22 AM OR DIRECTOR Well woman exam ANTI HIV 1/2 Routine 05/25/2011 4:35 PM CDT examination or test, unconfirmed from Last 3 Months or Most Recently Relevant to Health Maintenance Results * LIQUOR BLENDER THIN PREP PAP SCREEN IMAGED (09/07/2016 11:22 AM OR DIRECTOR) Case Report Gynecologic Cytology Report ? Case: [id number] ? Authorizing Provider: ??Kalyani Patel MD ?Collected: ? 09/07/2016 1122 ? Ordering Location: ? [facility] ?Received: ?09/07/2016 1123 ? Clinic ? First Screen: ?Danay Hooper ? Pathologist: ? Sulaiman Lux MD ? Specimen: ?LIQUOR BLENDER ThinPrep Vial Screening, Cervical ? 09/14/2016 4:45 PM OR DIRECTOR [facility] INTERPRETATION/ RESULT NEGATIVE FOR INTRAEPITHELIAL LESION OR MALIGNANCY (NIL) (none) 09/14/2016 4:45 PM OR DIRECTOR [facility] R NON-NEOPLASTIC FINDING(S) Reactive cellular changes associated with inflammation/repa ir 09/14/2016 4:45 PM OR DIRECTOR [facility] SPECIMEN ADEQUACY Satisfactory for evaluation Endocervical component present 09/14/2016 4:45 PM OR DIRECTOR [facility] HPV REQUEST HPV if ASCUS 09/14/2016 4:45 PM OR DIRECTOR [facility] Date of LMP 08/16/2016 09/14/2016 4:45 PM OR DIRECTOR [facility] Last Pap Date unk 09/14/2016 4:45 PM OR DIRECTOR [facility] Last Pap Result NIL 7 4:45 PM OR DIRECTOR [facility] Abnormal Pap or Madison Bx in last 5 years No 09/14/2016 4:45 PM OR DIRECTOR [facility] Menstrual Status Regular Periods 09/14/2016 4:45 PM OR DIRECTOR [facility] [place] Bx Done Today No 09/14/2016 4:45 PM OR DIRECTOR [facility] Additional Information None given 09/14/2016 4:45 PM OR DIRECTOR [facility] Automated Review Successful 09/14/2016 4:45 PM OR DIRECTOR [facility] Comment:Specimen processed s uccessfully by automated redevelopment manager device, ThinPrep Imaging System, [employer] Note The pap test is a screening technique, not a diagnostic procedure. ??It is used primarily to screen for squamous cancers and precursor lesions. ??Published studies have shown that it is subject to both false negative and false positive results. ??The pap test should not be used as the sole means to diagnose or exclude pre-malignant and malignant lesions. Interpreted at [facility] ([facility], [facility], [facility], [facility], [facility], [facility], [facility]) 09/14/2016 4:45 PM OR DIRECTOR [facility] Other (Cervical) 09/07/2016 11:22 AM OR DIRECTOR 09/07/2016 11:23 AM OR DIRECTOR Kalyani Patel MD PATHOLOGY/CYTOLOGY [facility] [address] [place] [address], * ANTI HIV 1/2 (05/25/2011 4:35 PM CDT) ANTI HIV 1/2 Non-reacti ve [facility] Blood specimen (specimen) BLOOD SPECIMEN / Unknown 05/25/2011 4:35 PM CDT 05/25/2011 4:23 PM CDT Kalyani Patel MD SEND OUTS [facility] INTERNAL ZIP [address] [place] [address] from Last 3 Months or Most Recently Relevant to Health Maintenance Advance Directives * Full Code (Latest Code Status on File) Date Activated Date Inactivated Comments 10/30/2016 2:13 PM 10/30/2016 5:45 PM * Full Code Date Activated Date Inactivated Comments 10/29/2016 10:05 PM 10/30/2016 2:13 PM * Full Code Date Activated Date Inactivated Comments 01/04/2012 8:15 PM 01/06/2012 7:40 PM * Full Code Date Activated Date Inactivated Comments 09/18/2011 12:10 AM 09/18/2011 3:11 PM * Full Code Date Activated Date Inactivated Comments 09/18/2011 12:06 AM 09/18/2011 12:10 AM Care Teams Commodity Director Relationship Specialty Start Date End Date Yadira Crowe MD [address] [place] [address] PCP - General Family Practice 02/28/18
== END 2024-01-10 07:53 | disposition home or self-care (01) ==
LOC: NFLDREF 01-14 16:21
PROVIDERS: PCP Family Medicine; Referring Provider Family Medicine; Visit Provider Family Medicine
DX: E78.5 Hyperlipidemia, unspecified (principal); Z13.9 Encounter for screening, unspecified
CPT/HCPCS: 80053; 80061

== ENCOUNTER 2024-06-17 13:53 | Outpatient (CLI) | payer OTHER, SELFPAY ==
--- OUTSIDE RECORDS SUMMARY | 2024-06-18 14:51 | XMS_ITS | Clinical Summary ---
Author Organization [facility] Address [address] [place] [address] Care Team Providers Care Battery Wrecker Operator Name Role Phone Yadira Crowe MD Primary Care Provider + Allergies Active Allergy Reactions Criticality Noted Date Comments Banana Shortness Of Breath High 01/02/2012 Check RAST after delivery for possible association Medications acyclovir (ZOVIRAX) 400 MG tablet Take 400 mg by mouth 5 times daily for 5 days as needed for cold sores Active levonorgestrel (MIRENA) 20 MCG/DAY IUD 1 each by Intrauterine route once Active naloxone (NARCAN) 4 MG/0.1ML nasal sprayIndication s:Nutcracker phenomenon of renal vein [place] 1 spray (4 mg) into one nostril alternating nostrils once as needed for opioid reversal every 2-3 minutes until assistance arrives 0.2 mL 1 2 Active ondansetron (ZOFRAN) 4 MG tabletIndicatio ns:Nutcracker phenomenon of renal vein Take 1 tablet (4 mg) by mouth every 8 hours as needed for nausea 20 tablet 2 Active omeprazole (PRILOSEC) [address] capsuleIndicati ons:Nutcracker phenomenon of renal vein Take 1 capsule (20 mg) by mouth daily Take Omeprazole while taking Ibuprofen for pain 20 capsule 2 Active ibuprofen (ADVIL/MOTRIN) 600 MG tabletIndicatio ns:Nutcracker phenomenon of renal vein Take 1 tablet (600 mg) by mouth every 6 hours as needed for moderate pain 20 tablet 2 Active Active Problems Problem Noted Date Diagnosed [...] School Help Needed Not on file 04/27 Comments No Sex and Gender Information Value Date Recorded Sex Assigned at Not on file Legal Sex Female 10:07 AM CDT Gender Identity Not on file Sexual Orientation [...] MAMMO SCREENING 1982 YEARLY PREVENTIVE VISIT 1982 Pneumococcal Vaccine: Pediatrics (0 to 5 Years) and At-Risk Patients (6 to 64 Years) (1 of 2 - PCV) 1988 HIV SCREENING 1997 PAP 11/08/2003 DTAP/TDAP/TD IMMUNIZATION (4 - Td or Tdap) 02/25/2022 02/26/2012, 03/15/1996, 06/28/1984, Additional history exists PHQ-2 (once per calendar year) 2023 COVID-19 Vaccine ( season) 2024 05/03/2021, 08/16/2020, 07/27/2020 INFLUENZA VACCINE (#1) 2024 0, 05/11/2020, 05/06/2019, Additional history exists GLUCOSE 05/04/2025 05/04/2022, 03/06, 03/31/2022, Additional history exists LIPID 03/06/2027 03/06/2022 RSV VACCINE (1 - 1-dose 75+ series) 2057 HEPATITIS B IMMUNIZATION Completed 001, 10/17/2000, 09/19/2000 [...] creatinine equation which includes age and gender (Nursing Tech et al., NEJM, DOI: 10.1056/WJQCbz6286685) Blood STRUCTURE OF RIGHT UPPER LIMB / Unknown Venipuncture / Unknown 05/04/2022 6:41 AM CDT 05/04/2022 6:50 AM CDT Abel Rae MD LAB - BLOOD ORDERABLES Final Result LABORATORY [facility] [address] floor, [address] [place] [address], [facility] [phone] * Hepatitis C antibody (03/30/2022 7:10 AM CDT) Hepatitis C Antibody Nonreactive Nonreactive 03/30/2022 9:28 PM CDT [facility] SPECIALTY CORE/PROT/EN DO Blood STRUCTURE OF LEFT UPPER LIMB / Unknown Venipuncture / Unknown 03/30/2022 7:10 AM CDT 03/30/2022 7:17 AM CDT Narrative SPECIALTY CORE/PROT/ENDO - 03/30/2022 9:28 PM CDT Assay performance characteristics have not been established for newborns, infants, and children. Michelle Brar PA-C LAB - BLOOD ORDERABLES Fidelina l Result [facility] SPECIALTY CORE/PROT/ENDO [facility] Specialty Core/Prot/Endo [address] [facility], [address] [phone] * Lipid panel (03/06/2022 6:08 AM CDT) [...] mg/dL Rich Vilchis MD LAB - BLOOD ORDERABLES Final Result LABORATORY [facility] [address] floor, [address] [place] [address], [facility] [phone] from Last 3 Months or Most Recently Relevant to Health Maintenance Advance Directives For more information, please contact: [phone] * Full Code (Latest Code Status on File) Date Activated Date Inactivated Comments 03/30/2022 12:36 AM 04/01/2022 2:38 PM All basic a nd advanced life-sustaining interventions are performed as appropriate Question Answer Comments Code status determined by: Discussion with alfonsoe nt/ legal decision maker * Full Code Date Activated Date Inactivated Comments 03/06/2022 11:40 AM 03/11/2022 12:41 PM All basic an d advanced life-sustaining interventions are performed as appropriate Question Answer Comments Code status determined by: Discussion with antione nt/ legal decision maker Care Teams Battery Wrecker Operator Relationship Specialty Start Date End Date Yadira Crowe MD [employer] [employer] & [address] [address] PCP - General Family Medicine 03/06/22
--- OUTSIDE RECORDS SUMMARY | 2024-06-18 14:51 | XMS_ITS | Encounter Summary ---
Author Organization [facility] Address [address] [place] [address] Care Team Providers Care Biodiesel Technology Manager Name Role Phone Yadira Crowe MD Primary Care Provider + Rich Vilchis MD Unavailable [phone] Encounter Details Date Type Department Care Team (Late st Contact Info) Description 05/08/2022 [facility] [address] [place] [address] [phone] Paz Freedman, RN Social History Tobacco Use Types Packs/Day Years Used Date Smoking Tobacco: Former Cigarettes Q uit: 02/07/2022 Smokeless Tobacco: Never Alcohol Use Standard Drinks/Week Comments Yes 0 (1 standard drink = 0.6 oz pur e alcohol) occ Comments No Sex and Gender Information Value [...] on filedocumented in this encounter Care Teams Biodiesel Technology Manager Relationship Specialty Start Date End Date Yadira Crowe MD [facility] & [address] [address] PCP - General Family Medicine 03/06/22 Rich Vilchis MD [address] [place] [address] Assigned Heart and Vascular Provider 05/02/22 12/25/23 documented as of this encounter
--- OUTSIDE RECORDS SUMMARY | 2024-06-18 14:51 | XMS_ITS | Encounter Summary ---
Author Organization [facility] Address [address] [place] [address] Care Team Providers Care Soft Crab Shedder Name Role Phone Rich Vilchis MD Unavailable [phone] Yadira Crowe MD Primary Care Provider + Emilie Elder BOILING TUB OPERATOR Unavailable [phone] Rich Vilchis MD Unavailable [phone] Encounter Details Date Type Department Care Team (Late st Contact Info) Description 03/23/2022 MyC Medical Advice [facility] [address] [place] [address] [place] [phone] Emilie Elder, BOILING TUB OPERATOR [address] [place], [place] [phone] Social History Tobacco Use Types Packs/Day Years Used Date Smoking Tobacco: Former Cigarettes Q uit: 02/07/2022 Smokeless Tobacco: Never Alcohol Use Standard Drinks/Week Comments Yes 0 (1 standard drink = 0.6 oz pur e alcohol) 4 times per week Comments No Sex and Gender Information Value [...] documented as of this encounter Care Teams Soft Crab Shedder Relationship Specialty Start Date End Date Yadira Crowe MD [facility] & [address] [address] PCP - General Family Medicine 03/06/22 Rich Vilchis MD [address] [address] Assigned Heart and Vascular Provider 02/03/22 03/30/22 Emilie lEder NP [address] [place], [place] [address] Assigned Heart and Vascular Provider 03/31/22 05/01/22 Rich Vilchis MD [address] [address] Assigned Heart and Vascular Provider 05/02/22 12/25/23 documented as of this encounter
--- OUTSIDE RECORDS SUMMARY | 2024-06-18 14:51 | XMS_ITS | Referral Summary ---
Author Organization [facility] Address [address] [place] [address] Care Team Providers Care Concrete Mixing Truck Driver Name Role Phone Yadira Crowe MD Primary [...] nasal sprayIndication s:Nutcracker phenomenon of renal vein [place] 1 spray (4 mg) into one nostril [...] creatinine equation which includes age and gender (Equal Opportunity Counselor et al., NEJ, DOI: 10.1056/ASZUrn2585471) Blood STRUCTURE OF RIGHT UPPER LIMB / Unknown Venipuncture / Unknown 05/04/2022 6:41 AM CDT 05/04/2022 6:50 AM CDT us Abel Rae MD LAB - BLOOD ORDERABLES Final Result LABORATORY [facility] [address] 1[address] floor, [address] [place] [address], [facility] [phone] * Hepatitis C antibody (03/30/2022 7:10 AM CDT) Pathologist [facility] Hepatitis C Antibody Nonreactive Nonreactive 03/30/2022 9:28 PM CDT SPECIALTY CORE/PROT/EN DO Blood STRUCTURE OF LEFT UPPER LIMB / Unknown Venipuncture / Unknown 03/30/2022 7:10 AM CDT 03/30/2022 7:17 AM CDT Narrative SPECIALTY CORE/PROT/ENDO - 03/30/2022 9:28 PM CDT Assay performance characteristics have not been established for newborns, infants, and children. us Michelle Brar PA-C LAB - BLOOD ORDERABLES Fidelina manuel Result SPECIALTY CORE/PROT/ENDO Specialty Core/Prot/Endo [address] [facility], [address] [phone] * Lipid panel (03/06/2022 6:08 AM CDT) [...] LAB - BLOOD ORDERABLES Final Result LABORATORY [facility] [address], [address] [place] [address], [facility] [phone] from Last 3 Months or Most Recently Relevant to Health Maintenance Advance Directives For more information, please contact: [phone] * Full Code (Latest Code Status on [...] patie nt/ legal decision maker Care Teams Concrete Mixing Truck Driver Relationship Specialty Start Date End Date Yadira Crowe MD [facility] & [address] [address] PCP - General Family Medicine 03/06/22
--- OUTSIDE RECORDS SUMMARY | 2024-06-18 14:51 | XMS_ITS | Encounter Summary ---
Author Organization [place] Address [address] [place] [address] Care Team Providers Care Pullman Clerk Name Role Phone Yadira Crowe MD Primary Care Provider + Emilie Elder CATHODE BUILDER Unavailable [phone] Rich Vilchis MD Unavailable Reason for Visit * Reason Onset Date Comments Refill Request 04/02/2022 Encounter Details Date Type Department Care Team (Late st Contact Info) Description 04/02/2022 MyC Refill [facility] [place] [address] [facility] [address] [place] [phone] Emilie Elder, CATHODE BUILDER [address] [place], [place] [address] Refill Request Social History Tobacco Use Types [...] documented as of this encounter Care Teams Pullman Clerk Relationship Specialty Start Date End Date Yadira Crowe MD [facility] & [address] [address] PCP - General Family Medicine 03/06/22 Emilie Elder NP [address] [place], [place] [address] Assigned Heart and Vascular Provider 03/31/22 05/01/22 Rich Vilchis MD [address] [place] [address] Assigned Heart and Vascular Provider 05/02/22 12/25/23 documented as of this encounter
--- OUTSIDE RECORDS SUMMARY | 2024-06-18 14:51 | XMS_ITS | Encounter Summary ---
Author Organization [facility] [place] Address [address] [place] [address] Care Team Providers Care Staff Software Engineer Name Role Phone Rich Vilchis MD Unavailable [phone] Yadira Crowe MD Primary Care Provider + Emilie Elder PHYSICAL THERAPY TEACHER Unavailable [phone] Rich Vilchis MD Unavailable [phone] Reason for Visit * Reason Onset Date Comments Refill Request 03/18/2022 Encounter Details Date Type Department Care Team (Late st Contact Info) Description 03/18/2022 Navya Beck [facility] [address] [place] [address] [address] Emilie Elder, PHYSICAL THERAPY TEACHER [address] [place], [place] [address] Refill Request Social History Tobacco Use Types [...] documented as of this encounter Care Teams Staff Software Engineer Relationship Specialty Start Date End Date Yadira Crowe MD [facility] & [address] [address] PCP - General Family Medicine 03/06/22 Rich Vilchis MD [address] [address] Assigned Heart and Vascular Provider 02/03/22 03/30/22 Emilie Elder NP [address] [place] [address] Assigned Heart and Vascular Provider 03/31/22 05/01/22 Rich Vilhcis MD [address] [address] Assigned Heart and Vascular Provider 05/02/22 12/25/23 documented as of this encounter
--- OUTSIDE RECORDS SUMMARY | 2024-06-18 14:51 | XMS_ITS | Clinical Summary ---
Author Organization [facility] Address [place], [place] [address] Care Team Providers Care Buffing Wheel Former Machine Name Role Phone Yadira Crowe MD Primary [...] Depression with anxiety 11/25/2013 Microscopic colitis 12/05/2012 Overview (12/05/2012): Colonoscopy 12/2012 microscopic colitis GERD (gastroesophageal reflux disease) 2 Urosepsis 01/11/2012 Overview (02/11/2012): With SIRS, due to nephrolithiasis 12/2009. Hospitalized at [facility]. 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 Koch in [place] at 9AM [address] [facility] Urethritis, unspecified 07/25/2011 07/0 04/2012 Supervision of other normal 10/11/2010 02/11/2012 Overview (12/25/2011): 12/25/11 Planning on delivering in [place]. Care Coordination: Clarke Montano RN [facility] [phone] Pediatric urology consult with Dr. Koch on 12/18/[address]. [address] Koch for infant to have an ultrasound sometime after 2 days old and follow up Dr[facility] Koch at [facility]. Kidney stone complicating 08/19/2009 12/17/2011 [...] 02/26/2012, 03/15/1996 COVID-19 vaccine series ( season) 2024 Influenza for age 9-49 04/05/2024 6, 04/06/2015, 05/06/2014, Additional history exists HIV for age 15-65 Completed 05/25/2011, 02/21/2009 Tdap Completed 02/26/2012 Pneumococcal series for age 6-64 Aged Out No longer eligible based on patient's age to complete this topic Medical Devices Implanted Type Area Teletypist Device Identifier Shelf Expiration Date Model / Serial / Lot Stent Contour [id number] - [id number] Implanted:Qty: 1 on 08/19/2009 at [facility] Left: Ureter [facility] [id number] / / [id number] Procedures Procedure Name Priority Date/Time Associated Diagnosis Comments GAME PROTECTOR THIN PREP PAP SCREEN IMAGED Routine 09/07/2016 11:22 AM CUSTOMS ENTRY CLERK Well woman exam ANTI HIV 1/2 Routine 05/25/2011 4:35 PM CDT examination or test, unconfirmed from Last 3 Months or Most Recently Relevant to Health Maintenance Results * GAME PROTECTOR THIN PREP PAP SCREEN IMAGED (09/07/2016 11:22 AM CUSTOMS ENTRY CLERK) Case Report Gynecologic Cytology Report ? Case: [id number] ? Authorizing Provider: ??Kalyani Patel MD ?Collected: ? 09/07/2016 1122 ? Ordering Location: ? [facility] ?Received: ?09/07/2016 1123 ? Clinic ? First Screen: ?Danay Hooper ? Pathologist: ? Sulaiman Lux MD ? Specimen: ?GAME PROTECTOR ThinPrep Vial Screening, Cervical ? 09/14/2016 4:45 PM CUSTOMS ENTRY CLERK [facility]- ENTRAL LAB[facility] INTERPRETATION/ RESULT NEGATIVE FOR INTRAEPITHELIAL LESION OR MALIGNANCY (NIL) (none) 09/14/2016 4:45 PM CUSTOMS ENTRY CLERK [facility] [employer] [facility] ENTRAL LABORATORY R NON-NEOPLASTIC FINDING(S) Reactive cellular changes associated with inflammation/repa ir 09/14/2016 4:45 PM CUSTOMS ENTRY CLERK [facility] ENTRAL LABORATORY SPECIMEN ADEQUACY Satisfactory for evaluation Endocervical component present 09/14/2016 4:45 PM CUSTOMS ENTRY CLERK [facility] [employer] [facility] ENTRAL LABORATORY HPV REQUEST HPV if ASCUS 09/14/2016 4:45 PM CUSTOMS ENTRY CLERK [facility] ENTRAL LABORATORY Date of LMP 08/16/2016 09/14/2016 4:45 PM CUSTOMS ENTRY CLERK [facility] LABORAT[facility]-C ENTRAL LABORATORY Last Pap Date unk 09/14/2016 4:45 PM CUSTOMS ENTRY CLERK [facility] EN[facility]AL LABOR[facility] Last Pap Result NIL 7 4:45 PM CUSTOMS ENTRY CLERK [facility] [employer] LABORATORY-C ENTRAL LABORATORY Abnormal Pap or [place] Bx in last 5 years No 09/14/2016 4:45 PM CUSTOMS ENTRY CLERK [facility] [employer] [facility] ENTRAL LABORATORY Menstrual Status Regular Periods 09/14/2016 4:45 PM CUSTOMS ENTRY CLERK [facility] [employer] [facility] [place] Bx Done Today No 09/14/2016 4:45 PM CUSTOMS ENTRY CLERK [facility] ENTRAL LABORATORY Additional Information None given 09/14/2016 4:45 PM CUSTOMS ENTRY CLERK [facility] ENTRAL LABORATORY Automated Review Successful 09/14/2016 4:45 PM CUSTOMS ENTRY CLERK [facility] LAB[facility]-C [facility] Comment:Specimen processed s uccessfully by automated television producer device, VerbalizeIt[employer] Imaging System, [employer] Note The pap test is a screening technique, not a diagnostic procedure. ??It is used primarily to screen for squamous cancers and precursor lesions. ??Published studies have shown that it is subject to both false negative and false positive results. ??The pap test should not be used as the sole means to diagnose or exclude pre-malignant and malignant lesions. Interpreted at [facility] ([facility], [facility], [facility], [facility], [facility], [facility], [facility]) 09/14/2016 4:45 PM CUSTOMS ENTRY CLERK [facility] Other (Cervical) 09/07/2016 11:22 AM CUSTOMS ENTRY CLERK 09/07/2016 11:23 AM CUSTOMS ENTRY CLERK Kalyani Patel MD PATHOLOGY/CYTOLOGY [facility] LABORATORY-CENTRAL LABORATORY [address] [place] [address], * ANTI HIV 1/2 (05/25/2011 4:35 PM CDT) ANTI HIV 1/2 Non-reacti ve [facility] Blood specimen (specimen) BLOOD SPECIMEN / Unknown 05/25/2011 4:35 PM CDT 05/25/2011 4:23 PM CDT Kalyani Patel MD SEND OUTS [facility] LABORATORY [place]NAL ZIP [id number] [address] [place] [address] from Last 3 Months or Most Recently [...] 12:06 AM 09/18/2011 12:10 AM Care Teams Buffing Wheel Former Machine Relationship Specialty Start Date End Date Yadira Crowe MD [address] [place] [address] PCP - General Family Practice 02/28/18
--- OUTSIDE RECORDS SUMMARY | 2024-06-18 14:51 | XMS_ITS | Encounter Summary ---
Author Organization [place] Address [address] [place] [address] Care Team Providers Care Building Equipment Operator Name Role Phone Yadira Crowe MD Primary Care Provider + Emilie Elder GRAIN TRADER Unavailable [phone] Rich Vilchis MD Unavailable Encounter Details Date Type Department Care Team (Late st Contact Info) Description 04/11/2022 [facility] Medical Advice [facility] [address] [place] [phone] Emilie Elder, GRAIN TRADER [address] [place] [address] Social History Tobacco Use Types [...] documented as of this encounter Care Teams Building Equipment Operator Relationship Specialty Start Date End Date Yadira Crowe MD [facility] & [address] [address] PCP - General Family Medicine 03/06/22 Emilie Elder NP [address] [place], [place] [id number] Assigned Heart and Vascular Provider 03/31/22 05/01/22 Rich Vilchis MD [address] [place] [address] Assigned Heart and Vascular Provider 05/02/22 12/25/23 documented as of this encounter
== END 2024-06-17 13:54 | disposition home or self-care (01) ==
LOC: NFLDREF 06-18 14:49
PROVIDERS: PCP Family Medicine; Referring Provider Family Medicine; Visit Provider Otolaryngology
DX: G50.0 Trigeminal neuralgia (principal)
CPT/HCPCS: 80076; 86038

== ENCOUNTER 2024-11-23 13:40 | Outpatient (CLI) | payer OTHER, SELFPAY ==
--- NOTE | 2024-11-23 14:00 | CRLHL7_ITS ---
For Patients: As a result of the Century Cures Act, medical imaging exams and procedure reports are released immediately into your electronic medical record. You may view this report before your referring provider. If you have questions, please contact your health care provider. COMPARISON: 11/30/13 TECHNIQUE: CC and MLO views were obtained. These mammographic images have been obtained using full-field digital technique. These mammographic images were interpreted with the benefit of computer aided detection and tomosynthesis. BREAST COMPOSITION: The breasts are heterogeneously dense, which may obscure small masses. FINDINGS: No suspicious findings. ASSESSMENT: BI-RADS 2 Benign RECOMMENDATION: Annual screening mammogram. A lay language report of this examination will be provided to the patient. Dictated by: Yan Marc MD @ 11/24/2024 11:03:18 (Electronically Signed)
== END 2024-11-23 13:41 | disposition home or self-care (01) ==
LOC: MAMMO 13:40
PROVIDERS: PCP Family Medicine; Visit Provider Family Medicine
DX: Z12.31 Encounter for screening mammogram for malignant neoplasm of breast (principal); R92.333 Mammographic heterogeneous density, bilateral breasts
CPT/HCPCS: 77063; 77067

== ENCOUNTER 2025-05-06 08:10 | Outpatient (CLI) | payer OTHER, SELFPAY | END 2025-05-06 08:11 | disposition home or self-care (01) | LOC: NFLDREF 05-20 00:55 | PROVIDERS: PCP Family Medicine; Referring Provider Family Medicine; Visit Provider Family Medicine | DX: Z13.9 Encounter for screening, unspecified (principal); Z13.6 Encounter for screening for cardiovascular disorders | CPT/HCPCS: 80053; 80061 ==